=== PATIENT | male | born 1985 ===

== ENCOUNTER 2018-05-05 22:27 | Emergency (ER) | payer OTHER ==
[2018-05-05 22:27] VITALS: BMI 29.6
[2018-05-05 22:36] VITALS: TEMP 98.1
--- NOTE | 2018-05-05 22:45 | ED PDOC ---
HPI: General Adult Time Seen by Provider: 05/05/18 22:42 Chief Complaint (Nursing): Medical Clearance Chief Complaint (Provider): medical clearance History Per: Patient (32 y/o male here for medical clearance prior to incarceration. Police suspect patient smoked crack few hours prior but patient denies. Has no complaints. Denies any medical history or medication use. As per police was found with crack pipe. When asked if he knew why he was in ED, patient states "because I'm an idiot.") Past Medical History Reviewed: Historical Data, Nursing Documentation, Vital Signs Vital Signs: Last Vital Signs Temp 98.1 F 05/05/18 22:34 Pulse 63 05/05/18 22:34 Resp 17 05/05/18 22:34 BP 138/83 05/05/18 22:34 Pulse Ox 100 05/05/18 22:34 - Medical History PMH: Back Problems - Family History Family History: States: Unknown Family Hx - Immunization History Hx Tetanus Toxoid Vaccination: No Hx Influenza Vaccination: No Hx Pneumococcal Vaccination: No - Home Medications Home Medications: Ambulatory Orders Medication Instructions Recorded Oxycodone HCl/Acetaminophen 1 tab PO Q6 #15 tab 06/15/16 [Percocet 325 mg-5 mg] oxyCODONE/Acetaminophen [Percocet 1 tab PO QID PRN #10 tab 08/13/16 5/325 mg Tab] Ibuprofen [Motrin] 800 mg PO QID PRN 09/10/16 Ibuprofen [Motrin] 600 mg PO Q6 #30 tab 09/11/16 diaZEpam [Valium] 5 mg PO Q8 PRN #15 tab 09/11/16 oxyCODONE/Acetaminophen [Percocet 1 tab PO Q6 PRN #20 tab 09/11/16 5/325 mg Tab] - Allergies Allergies/Adverse Reactions: Allergies Allergy/AdvReac Type Severity Reaction Status Date / Time No Known Allergies Allergy Verified 09/10/16 22:19 Review of Systems ROS Statement: Except As Marked, All Systems Reviewed And Found Negative Physical Exam - Reviewed Nursing Documentation Reviewed: Yes Vital Signs Reviewed: Yes - Physical Exam Appears: Positive for: Well, Non-toxic, No Acute Distress Head Exam: Positive for: ATRAUMATIC, NORMAL INSPECTION, NORMOCEPHALIC Skin: Positive for: Normal Color, Warm, DRY Eye Exam: Positive for: EOMI, Normal appearance, PERRL ENT: Positive for: Normal ENT Inspection Neck: Positive for: Normal, Painless ROM Cardiovascular/Chest: Positive for: Regular Rate, Rhythm Respiratory: Positive for: CNT, Normal Breath Sounds Gastrointestinal/Abdominal: Positive for: Normal Exam, Soft Back: Positive for: Normal Inspection Extremity: Positive for: Normal ROM Neurologic/Psych: Positive for: Alert, Oriented - ECG O2 Sat by Pulse Oximetry: 100 - Progress ED Course And Treament: Patient alert in ED. In no distress. Disposition - Clinical Impression Clinical Impression: Medical clearance for incarceration - Patient ED Disposition Is Patient to be Admitted: No - Disposition Disposition: Routine/Home Disposition Time: 22:44 Condition: FAIR Additional Instructions: PATIENT IS MEDICALLY AND PSYCHIATRICALLY CLEARED FOR INCARCERATION. Instructions: General (DC)
[2018-05-05 23:23] VITALS: BP 131/77; PULSE 74; RESP 16; O2SAT 98
== END 2018-05-05 22:50 ==
LOC: H.ER 22:27